=== PATIENT | male | born 1990 | race Caucasian/White ===

== ENCOUNTER 2023-10-12 22:05 | Emergency (ER) | payer OTHER ==
[2023-10-12 22:16] VITALS: BP 118/68; O2SAT 98
--- NOTE | 2023-10-12 22:25 | ED Physician Documentation ---
History of Present Illness - Stated complaint Stated Complaint: HIVES - Chief complaint Chief Complaint: General - History obtained from History obtained from: Patient - Additonal information Additional information: He developed itchy hives all over the body just the last hour or so. Is unclear what caused it, he was eating turkey burgers and organic bones at the time. Of note he also has a burning feeling patch on the flank that is been there for 3 weeks. He did have chickenpox as a child. PD PAST MEDICAL HISTORY - Past Medical History Past Medical History: No Cardiovascular: None Respiratory: None Neuro: None Endocrine/Autoimmune: None GI: None : None HEENT: None Psych: None Musculoskeletal: None Derm: None - Past Surgical History Past Surgical History: No - Present Medications Home Medications: Ambulatory Orders Medication Instructions Recorded Confirmed Cetirizine [ZyrTEC] 10 mg PO DAILY #10 tablet 10/12/23 predniSONE [Deltasone] 60 mg PO DAILY 5 Days #15 tablet 10/12/23 - Allergies Allergies/Adverse Reactions: Allergies Allergy/AdvReac Type Severity Reaction Status Date / Time No Known Drug Allergies Allergy Verified 10/12/23 22:12 - Social History Does the pt smoke?: No Smoking Status: Never smoker Does the pt drink ETOH?: No Does the pt have substance abuse?: No - Immunizations Immunizations are current?: Yes - POLST Patient has POLST: No PD ED PE NORMAL - Vitals Vital signs reviewed: Yes - General General: Alert and oriented X 3, No acute distress - HEENT HEENT: Pharynx benign - Derm Derm: Other (Confluent body wide hives. Oropharynx, palms and soles are spared. He also has a patch of older shingles on the right flank.) - Neuro Neuro: Alert and oriented X 3, Normal speech Results - Vitals Vitals: Vital Signs - 24 hr 10/12/23 22:07 Temperature 36.7 C Heart Rate 60 Respiratory 18 Rate Blood Pressure 118/68 O2 Saturation 98 Oxygen O2 Source Room air PD Medical Decision Making - ED course ED course: He has 3-week-old shingles at which point there is nothing to do for it at this point except to let it heal. He also has more acute hives, the trigger is unknown and he was treated with steroids and Zyrtec. Departure - Departure Disposition: 01 Home, Self Care Clinical Impression: Hives Condition: Good Record reviewed to determine appropriate education?: Yes Instructions: ED Urticaria Prescriptions: predniSONE [Deltasone] 60 mg PO DAILY 5 Days #15 tablet Cetirizine [ZyrTEC] 10 mg PO DAILY #10 tablet Comments: You were seen tonight for hives. Also an area of resolving shingles on the right side. 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 Return if worse.
[2023-10-12] MEDS: predniSONE 20 MG TABLET PO STA (22:32)
[2023-10-12] MEDS: CETIRIZINE 10 MG TABLET PO STA (22:32)
== END 2023-10-12 22:37 | disposition home or self-care (01) ==
LOC: ED 22:05
DX: L50.9 Urticaria, unspecified (principal); B02.9 Zoster without complications
CPT/HCPCS: 99282; 99284; A9270; J7512